=== PATIENT | female | born 1975 | race Two or more races ===

== ENCOUNTER 2017-03-27 05:24 | Emergency (ER) | payer MEDICAID ==
[~2017-03-27] VITALS: Ht 167.6 cm; Wt 99.8 kg
[2017-03-27 09:58] VITALS: BP 132/99
== END 2017-03-27 10:12 | disposition home or self-care (01) ==
LOC: ER 05:27
DX: N64.52 Nipple discharge (principal); J01.10 Acute frontal sinusitis, unspecified
CPT/HCPCS: 76642; 81025

== ENCOUNTER 2017-07-15 11:27 | Emergency (ER) | payer MEDICAID ==
[~2017-07-15] VITALS: Ht 167.6 cm; Wt 99.8 kg
[2017-07-15] MEDS ORDERED: IOHEXOL 300 MG/ML 100ML BOTTLE IJ ONE (12:00)
[2017-07-15 12:19] LABS: Basophils # (auto) 0 uL; Basophils % (auto) 0.1 % (0.0-2.0); Eosinophils # (auto) 0 uL; Hematocrit 46.8 % (36.0-46.0); Lymphocytes # (auto) 0.4 uL; Lymphocytes % (auto) 5.8 % (10.0-50.0); Mean Corpuscular Hemoglobin 29.8 pg (28.0-32.0); Mean Corpuscular Hgb Conc. 34.2 g/dL (32.0-36.0); Mean Corpuscular Volume 87.2 fL (80.0-100.0); Monocytes # (auto) 0.5 uL; Neutrophils # (auto) 5.7 uL; Neutrophils % (auto) 87.1 % (37.0-80.0); Nucleated Red Blood Cells % 0.1 %; Platelet Count (auto) 247 10^3/uL (140-450); Red Blood Cells 5.37 10^6/uL (4.0-5.20); Red Cell Distribution Width 14.9 % (11.8-14.3); White Blood Cell 6.5 10^3/uL (4.4-10.8)
[2017-07-15] MEDS ORDERED: SODIUM CHLORIDE 0.9% 500 ML IV ONE (12:28)
[2017-07-15] MEDS ORDERED: ONDANSETRON HCL 4 MG/2 ML VIAL IV ONE (12:30)
[2017-07-15 12:54] LABS: Alanine Aminotransferase 39 U/L (13-56); Albumin 4.2 g/dL (3.4-5.0); Alkaline Phosphatase 94 U/L (45-117); Anion Gap 9 (5-15); Aspartate Aminotransferase 43 U/L (15-37); BUN/Creatinine Ratio 7.1; Bilirubin, Total 0.6 mg/dL (0.2-1.0); Blood Urea Nitrogen 6 mg/dL (7-18); Carbon Dioxide 24 mmol/L (21-32); Chloride 102 mmol/L (98-107); GFR African American 94 mL/min; GFR Non-African American 78 mL/min; Glucose 92 mg/dL (74-106); Potassium 3.1 mmol/L (3.5-5.1); Sodium 135 mmol/L (136-145)
[2017-07-15 14:09] LABS: Urine Bacteria NONE SEEN /hpf (None Seen); Urine Blood 1+ /uL (Negative); Urine Specific Gravity 1.042 (1.001-1.035); Urine WBC <1 /hpf (0 - 5)
[2017-07-15] MEDS ORDERED: SODIUM CHLORIDE 0.9% 1,000 ML IV ONE ×2 (14:20)
[2017-07-15] MEDS ORDERED: ACETAMINOPHEN 325 MG TAB PO ONE (14:30)
[2017-07-15] MEDS ORDERED: metroNIDAZOLE 500MG/100ML 100 ML IV ONE (14:30)
[2017-07-15] MEDS ORDERED: POTASSIUM CHL 10% (20 MEQ/15ML) 15ml ORAL SOLN PO ONE (15:00)
[2017-07-15 16:05] VITALS: BP 152/79
== END 2017-07-15 16:13 | disposition home or self-care (01) ==
LOC: EDBD 11:27 → ER 11:27
DX: K52.9 Noninfective gastroenteritis and colitis, unspecified (principal); E87.6 Hypokalemia; Z90.49 Acquired absence of other specified parts of digestive tract
CPT/HCPCS: 36415; 74177; 80053; 81001; 84484; 85025; 96361; 96365; 99285; J2405; J3490; J7030; J7040; Q9967

== ENCOUNTER 2024-01-14 18:16 | Emergency (ER) | payer MEDICAID ==
[~2024-01-14] VITALS: Ht 167.6 cm; Wt 77.2 kg
[2024-01-14 18:26] VITALS: BP 143/77; PULSE 84; RESP 18; O2SAT 95
[2024-01-14] MEDS ORDERED: DexAMETHasone 4 MG TAB PO ONE (19:00)
[2024-01-14] MEDS ORDERED: DIPH25CA66 PO (20:29)
[2024-01-14] MEDS ORDERED: PRED20TA2 PO (20:29)
[2024-01-14] MEDS ORDERED: FAMO20TA10 PO (20:29)
== END 2024-01-15 00:09 | disposition left against medical advice (07) ==
LOC: ER 18:16
DX: T78.3XXA Angioneurotic edema, initial encounter (principal); Z90.49 Acquired absence of other specified parts of digestive tract
CPT/HCPCS: 99283; J8540; 99291

== ENCOUNTER 2024-06-05 08:04 | Inpatient (IN) | payer MEDICAID ==
[~2024-06-05] VITALS: Ht 167.6 cm; Wt 137.4 kg
[~2024-06-05 08:04] MED LIST: DIPH25CA66 PO; FAMO20TA10 PO; PRED20TA2 PO
[2024-06-05 08:49] LABS: Urine Bacteria None Seen /hpf (None Seen)
[2024-06-05 08:59] LABS: Urine Blood TRACE /uL (Negative); Urine Clarity Clear (Clear); Urine Color Light-Yellow (Yellow); Urine Protein, UAD Negative (Negative); Urine Specific Gravity 1.011 (1.001-1.035); Urine Squamous Epithelial Cell FEW /hpf (<5); Urine Urobilinogen Normal (Negative); Urine WBC 1 /HPF (0-5); Urine pH 6.5 (5.0-9.0)
--- NOTE | 2024-06-05 09:19 | ED.PDOC ---
HPI (NEURO) HPI Comments 48 year old female presents to the ED with chief complaint of left arm weakness/numbness. Patient relays that she woke up this morning with left arm numbness and weakness, not being able to lift it up very high along with associated headache, and eye pain. Patient relays that she is now unable to walk well on her own with her legs being very weak. Patient denies any chest pain, SOB, dizziness, blurred vision, fever, or chills. Chief Complaint: General Weakness Time Seen by MD: 09:11 Primary Care Provider: KIRILL Reviewed Notes: Nurses Notes, Medications, Allergies Information Source: Patient Mode of Arrival: Ambulatory Severity: Moderate Dizziness/Weakness Severity: Unable to do activities Headache Severity: Moderate Timing: Hours Duration: Since onset Prehospital treatment: None Headache Quality: Aching Headache Location: Generalized Weakness Location: (L) Arm, (R) Leg, (L) Leg Numbness Location: (L) Arm Onset: At rest Circumstances: Spontaneous Symptoms: Weakness History of: None Modifying factors: Nothing Past Medical History PAST MEDICAL HISTORY: HTN Surgical History: Cholecystectomy 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: No Pertinent MANAGER 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 Family History Family History: Unknown Social History Smoker: Non-Smoker Alcohol: Denies ETOH Use Drugs: Denies Drug Use Lives In: Home Constitutional: denies: chills, diaphoresis, fatigue, fever, malaise, sweats, weakness, others EENTM: reports: eye pain; denies: blurred vision, double vision, ear bleeding, ear discharge, ear drainage, ear pain, ear ringing, eye redness, hearing loss, mouth pain, mouth swelling, nasal discharge, nose bleeding, nose congestion, nose pain, photophobia, tearing, throat pain, throat swelling, voice changes, others Respiratory: denies: cough, hemoptysis, orthopnea, SOB at rest, shortness of breath, SOB with excertion, stridor, wheezing, others Cardiovascular: denies: chest pain, dizzy spells, diaphoresis, Dyspnea on exertion, edema, irregular heart beat, left arm pain, lightheadedness, pa lpitations, PND, syncope, others Gastrointestinal: denies: abdomen distended, abdominal pain, blood streaked bowels, constipated, diarrhea, dysphagia, difficulty swallowing, hematemesis, melena, nausea, poor appetite, poor fluid intake, rectal bleeding, rectal pain, vomiting, others Genitourinary: denies: abnormal vagina bleeding, burning, dyspareunia, dysuria, flank pain, frequency, hematuria, incontinence, pain, , vagina discharge, urgency, others Neurological: reports: headache, others (Left arm weakness/numbness, Difficulty walking); denies: dizziness, fainting, left sided numbness, left sided weakness, numbness, paresthesia, pre-existing deficit, right sided numbness, right sided weakness, seizure, speech problems, tingling, tremors, weakness Musculoskeletal: denies: back pain, gout, joint pain, joint swelling, muscle pain, muscle stiffness, neck pain, others Integumetry: denies: bruises, change in color, change in hair/nails, dryness, laceration, lesions, lumps, rash, wounds, others Allergic/Immunocompromised: denies: Difficulty Healing, Frequent Infections, Hives, Itching, others Hematologic/Lymphatic: denies: anemia, blood clots, easy bleeding, easy bruising, swollen glands, others Endocrine: denies: excessive hunger, excessive sweating, excessive thirst, excessive urination, flushing, intolerance to cold, intolerance to heat, unexplained weight gain, unexplained weight loss, others Psychiatric: denies: anxiety, bipolar disorder, depression, hopeless, panic disorder, schizophrenia, sleepless, suicidal, others All Other Systems: Reviewed and Negative Physical Exam General Appearance: No Apparent Distress, Normal HEENT: Normal ENT Inspection, PERRL/EOMI Neck: Full Range of Motion, Non-Tender, Normal, Normal Inspection Respiratory: Chest Non-Tender, Lungs Clear, No Accessory Muscle Use, No Respiratory Distress, Normal Breath Sounds Cardiovascular: No Edema, No JVD, No Murmur, No Gallop, Normal Peripheral Pulses, Regular Rate/Rhythm Breast Exam: Deferred Gastrointestinal: No Organomegaly, Non Tender, No Pulsatile Mass, Normal Bowel Sounds, Soft Genitalia: Deferred Pelvic: Deferred Rectal: Deferred Extremities: No calf tenderness, Normal capillary refill, Normal inspection, Normal range of motion, Non-tender, No pedal edema Musculoskeletal : Apperance: Normal 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 Was a procedure done?: No Differential Diagnosis (SZ) Seizure: CVA/TIA, Idiopathic CVA: CVA, Hypoglycemia, Hypoxemia General Weakness: Electrolyte imbalance, Encephalopathy, Hypotension, Myocardial infarction, Repiratory failure, TIA Headache: N/A X-Ray, Labs, Meds, VS Vital Signs Date Time Temp Pulse Resp B/P (MAP) Pulse Ox O2 Delivery O2 Flow Rate FiO2 06/05/24 10:15 97.9 78 22 183/92 (122) 96 97.9 06/05/24 10:07 Room Air* 0 21 06/05/24 08:18 84 06/05/24 08:07 98.0 86 20 153/78 (103) 95 171/84 (113) Lab Test 06/05/24 10:12 06/05/24 09:12 06/05/24 08:13 06/05/24 08:12 Range/Units Troponin I High Sensitivity 5 5 </=34 ng/L White Blood Count 10.1 4.4-10.8 10^3/uL Red Blood Count 5.08 4.0-5.20 10^6/uL Hemoglobin 15.5 12.2-16.2 g/dL Hematocrit 45.3 36.0-46.0 % Mean Corpuscular Volume 89.3 80.0-100.0 fL Mean Corpuscular Hemoglobin 30.5 28.0-32.0 pg Mean Corpuscular Hemoglobin Concent 34.2 32.0-36.0 g/dL Red Cell Distribution Width 14.3 11.8-14.3 % Platelet Count 377 140-450 10^3/uL Mean Platelet Volume 6.5 L 6.9-10.8 fL Neutrophils (%) (Auto) 69.5 37.0-80.0 % Lymphocytes (%) (Auto) 19.0 10.0-50.0 % Monocytes (%) (Auto) 6.6 0.0-12.0 % Eosinophils (%) (Auto) 4.4 0.0-7.0 % Basophils (%) (Auto) 0.5 0.0-2.0 % Neutrophils # (Auto) 7.0 1.6-8.6 10 ^3/uL Lymphocytes # (Auto) 1.9 0.4-5.4 10 ^3/uL Monocytes # (Auto) 0.7 0-1.3 10 ^3/uL Eosinophils # (Auto) 0.4 0-0.8 10 ^3/uL Basophils # (Auto) 0 0-0.2 10 ^3/uL Nucleated Red Blood Cells 0.0 % Sodium Level 138 136-145 mmol/L Potassium Level 4.5 3.5-5.1 mmol/L Chloride Level 104 98-107 mmol/L Carbon Dioxide Level 25 20-31 mmol/L Anion Gap 9 5-15 Blood Urea Nitrogen 9 9-23 mg/dL Creatinine 0.68 0.550-1.02 mg/dL Glomerular Filtration Rate Calc 107 >90 mL/min BUN/Creatinine Ratio 13.2 10.0-20.0 Serum Glucose 140 H 74-106 mg/dL Calcium Level 10.3 8.7-10.4 mg/dL Urine Color Light-yellow Yellow Urine Clarity Clear Clear Urine pH 6.5 5.0-9.0 Urine Specific [place] 1.011 1.001-1.035 Urine Protein Negative Negative Urine Ketones Negative Negative Urine Blood Trace H Negative /uL Urine Nitrite Negative Negative Urine Bilirubin Negative Negative Urine Urobilinogen Normal Negative mg/dL Urine Leukocyte Esterase Negative Negative /uL Urine RBC 1 0 - 4 /hpf Urine Microscopic WBC 1 0-5 /HPF Urine Squamous Epithelial Cells Few <5 /hpf Urine Bacteria None seen None Seen /hpf Urine Glucose Normal Normal mg/dL POC Glucose 147 H 70-106 mg/dl CT Head: FINDINGS: There is no evidence of acute intracranial hemorrhage, mass, mass effect midline shift. There is no hydrocephalus or extra-axial fluid collection. Le-white matter differentiation is maintained. The visualized paranasal sinuses and mastoid air cells are clear. The calvarium is intact. IMPRESSION: 1. No acute intracranial process. Images Reviewed?: Images reviewed and evaluated by me Time of 1ST Reevaluation: 10:11 Reevaluation 1ST: Unchanged Patient Education/Counseling: Diagnosis, Treatment Family Education/Counseling: Diagnosis, Treatment Additional Information I reviewed the following notes from patient's past medical encounters: 01/14/24 for allergic reaction The following tests were ordered, and results were reviewed by me: CBC, BMP, UA, Troponin, EKG, Chest XR, Head CT I reviewed and agreed with the following test results read by other providers: None Additional Information was gathered from interviewing the following independent historians: Family I discussed treatment and results with medical personnel and family Departure 1 Departure Time of Disposition: 11:50 (Patient presents with left-sided arm weakness generalized weakness for 1 day. Patient is out of window for emergent urologic intervention. Workup so far is benign. We will admit patient for further workup.) Impression: Primary Impression: Left arm weakness Additional Impression: Generalized weakness Disposition: ADMITTED INPATIENT Admit to: Med Surg Condition: Serious Critical Care Note Critical Care Time?: Yes Critical care comment: Left arm weakness concerning for CVA Authorized and Performed by: Yordan Hassan MD Total critical care time: Approximately 36 minutes Due to a high probability of clinically significant, life threatening deterioration, the patient required my highest level of preparedness to intervene emergently and I personally spent this critical care time directly and personally managing the patient. This critical care time included obtaining a history; examining the patient; pulse oximetry; ordering and review of studies; arranging urgent treatment with development of a management plan; evaluation of patient's response to treatment; frequent reassessment; and, discussions with other providers. This critical care time was performed to assess and manage the high probability of imminent, life-threatening deterioration that could result in multi-organ failure. It was exclusive of separately billable procedures and treating other patients and teaching time. Please see my other sections and the rest of the note for further information on patient assessment and treatment. Stability Stability form required: No Heart Score Heart Score: Heart Score Response (Comments) Value History N/A 0 EKG N/A 0 Age N/A 0 Risk Factors N/A 0 Troponin N/A 0 Total 0 I personally scribed for YORDAN HASSAN MD ([email or web address]) on 06/05/24 at 09:19. Electronically submitted by Juve Agosto ([email or web address]). I personally scribed for YORDAN HASSAN MD ([email or web address]) on 06/05/24 at 10:39. Electronically submitted by Juve Agosto ([email or web address]). YORDAN HASSAN MD Jun 05, 2024 09:19
--- NOTE | 2024-06-05 09:31 | DVH ---
CHEST RADIOGRAPH Indication: left arm weakness Technique: Single frontal view of the chest was obtained Comparison: None FINDINGS: Lines and Tubes: None Lungs: No focal consolidation. Pleura: No effusion. No pneumothorax. Cardiomediastinal contours: Unremarkable Bones: No acute osseous abnormality. IMPRESSION: No acute cardiopulmonary disease.
--- NOTE | 2024-06-05 09:35 | DVH ---
EXAM: CT HEAD WITHOUT CONTRAST HISTORY: left arm weakness COMPARISON: None TECHNIQUE: Axial images of the head were obtained and reformatted in coronal and sagittal planes. All CT scans at this medical facility are performed using dose modulation techniques as appropriate t o a performed exam including the following: Automated exposure control was utilized; adjustment of th e MA and/or KV according to patient size; and use of iterative reconstruction technique. CT Dose: CTDI volume is 65 mGy. Dose-length product is 1286 mGy*cm FINDINGS: There is no evidence of acute intracranial hemorrhage, mass, mass effect midline shift. There is no h ydrocephalus or extra-axial fluid collection. Le-white matter differentiation is maintained. The visualized paranasal sinuses and mastoid air cells are clear. The calvarium is intact. IMPRESSION: 1. No acute intracranial process. HS:Y
[2024-06-05 09:48] LABS: Basophils # (auto) 0 10 ^3/uL (0-0.2); Basophils % (auto) 0.5 % (0.0-2.0); Eosinophils # (auto) 0.4 10 ^3/uL (0-0.8); Eosinophils % (auto) 4.4 % (0.0-7.0); Hematocrit 45.3 % (36.0-46.0); Hemoglobin 15.5 g/dL (12.2-16.2); Lymphocytes # (auto) 1.9 10 ^3/uL (0.4-5.4); Mean Corpuscular Hemoglobin 30.5 pg (28.0-32.0); Mean Corpuscular Hgb Conc. 34.2 g/dL (32.0-36.0); Mean Corpuscular Volume 89.3 fL (80.0-100.0); Monocytes # (auto) 0.7 10 ^3/uL (0-1.3); Monocytes % (auto) 6.6 % (0.0-12.0); Neutrophils % (auto) 69.5 % (37.0-80.0); Platelet Count (auto) 377 10^3/uL (140-450); Red Blood Cells 5.08 10^6/uL (4.0-5.20); Red Cell Distribution Width 14.3 % (11.8-14.3); White Blood Cell 10.1 10^3/uL (4.4-10.8)
[2024-06-05 11:27] LABS: Chloride 104 mmol/L (98-107); Potassium 4.5 mmol/L (3.5-5.1); Sodium 138 mmol/L (136-145)
[2024-06-05 11:28] LABS: Anion Gap 9 (5-15); Calcium 10.3 mg/dL (8.7-10.4); Carbon Dioxide 25 mmol/L (20-31)
[2024-06-05 11:33] LABS: BUN/Creatinine Ratio 13.2 (10.0-20.0)
[2024-06-05 11:34] LABS: Blood Urea Nitrogen 9 mg/dL (9-23); Glucose 140 mg/dL (74-106)
[2024-06-05 12:50] VITALS: BP 146/88; PULSE 77; RESP 16; TEMP 97.6; O2SAT 96
[2024-06-05] MEDS ORDERED: LOSA-535 PO (13:35)
--- NOTE | 2024-06-05 13:43 | DVHHP2 ---
History of Present Illness Reason for Visit: Generalized weakness History of Present Illness Jeannine Calderon is a 48-year-old female with past medical history of morbid obesity, and hypertension, who came into the hospital due to generalized weakness. Patient states that she was fine yesterday, she woke up today and could not lift her left arm, and the rest of her body was weak and felt paralized. She state that normally she can ambulate to the bathroom, but she was unable to move her legs or body when she first woke up. She had generalized body aches and weakness. Her weakness has improved some however, she still has difficulty moving her left arm/shoulder. Cardiovascular: HTN Past Surgical History: Cholecystectomy, (x 3), Other (Brain tumor removal) Smoke: No ALCOHOL: none Drugs: None Lives: with Family (Lives with her 2 young children) Domestic Violence: Neg Review of Systems Constitutional: No: Fever, Chills, Sweats, Weakness, Malaise, Other Eyes: No: Pain, Vision change, Conjunctivae inflammation, Eyelid inflammation, Other, Redness ENT: No: Ear pain, Ear discharge, Nose pain, Nose discharge, Nose congestion, Mouth pain, Mouth swelling, Throat pain, Throat swelling, Other Respiratory: No: Cough, Dry, Shortness of breath, SOB with excertion, Wheezing, Hemoptysis, Pleuritic Pain, Sputum, Wheezing, Other Cardiovascular: No: Chest Pain, Palpitations, Orthopnea, Paroxysmal Noc. Dyspnea, Edema, Lt Headedness, Other Gastrointestinal: No: Nausea, Vomiting, Abdominal Pain, Diarrhea, Constipation, Melena, Hematochezia, Other Genitourinary: No Dysuria, No Frequency, No Incontinence, No Hematuria, No Retention, No Other Musculoskeletal: No: other, neck pain, shoulder pain, arm pain, back pain, hand pain, leg pain, foot pain Skin: No: Rash, Lesions, Jaundice, Bruising, Other Neurological: Weakness, Numbness; No: Incoordination, Change in speech, Confusion, Seizures, Other Allergies: Coded Allergies: NO KNOWN ALLERGIES (Unverified , 07/15/17) Medications Current Medications Medications Dose Ordered Sig/Barry Route Start Time Stop Time Status Last Admin Dose Admin Sodium Chloride 10 ml Q8HR IV 06/05/24 14:00 UNV Acetaminophen/ Hydrocodone Bitart 1 tab Q4HP PRN PO 06/05/24 13:45 UNV Ondansetron HCl 4 mg Q4HP PRN IV 06/05/24 13:45 UNV Docusate Sodium 100 mg BIDPRN PRN PO 06/05/24 13:45 UNV Acetaminophen 650 mg Q6HP PRN PO 06/05/24 13:45 UNV Nitroglycerin 0.4 mg Q5MINP PRN SL 06/05/24 13:45 UNV Morphine Sulfate 2 mg Q30M PRN IV 06/05/24 13:45 UNV Exam Vital Signs Vital Signs Date Time Temp Pulse Resp B/P (MAP) Pulse Ox O2 Delivery O2 Flow Rate FiO2 06/05/24 12:50 97.6 77 16 146/88 (107) 96 97.6 06/05/24 10:07 Room Air* 0 21 General Appearance: Alert, Oriented X3, Cooperative, mild distress HEENT: Atraumatic, PERRLA Respiratory: Clear to auscultation, Normal air movement Cardiovascular: Regular rate, Normal S1, Normal S2 Abdominal: Normal bowel sounds, Soft, No tenderness, No hepatospenomegaly Extremities: No clubbing, No cyanosis, Normal pulses Skin: No rashes, No breakdown, No significant lesion Neuro: Normal speech, Other (weakness in bilateral lower extremities) Psych/Mental Status: Mental status NL, Mood NL Labs/Xrays Labs Test 06/05/24 10:12 06/05/24 09:12 06/05/24 08:13 06/05/24 08:12 Range/Units Troponin I High Sensitivity 5 </=34 ng/L White Blood Count 10.1 4.4-10.8 10^3/uL Red Blood Count 5.08 4.0-5.20 10^6/uL Hemoglobin 15.5 12.2-16.2 g/dL Hematocrit 45.3 36.0-46.0 % Mean Corpuscular Volume 89.3 80.0-100.0 fL Mean Corpuscular Hemoglobin 30.5 28.0-32.0 pg Mean Corpuscular Hemoglobin Concent 34.2 32.0-36.0 g/dL Red Cell Distribution Width 14.3 11.8-14.3 % Platelet Count 377 140-450 10^3/uL Mean Platelet Volume 6.5 L 6.9-10.8 fL Neutrophils (%) (Auto) 69.5 37.0-80.0 % Lymphocytes (%) (Auto) 19.0 10.0-50.0 % Monocytes (%) (Auto) 6.6 0.0-12.0 % Eosinophils (%) (Auto) 4.4 0.0-7.0 % Basophils (%) (Auto) 0.5 0.0-2.0 % Neutrophils # (Auto) 7.0 1.6-8.6 10 ^3/uL Lymphocytes # (Auto) 1.9 0.4-5.4 10 ^3/uL Monocytes # (Auto) 0.7 0-1.3 10 ^3/uL Eosinophils # (Auto) 0.4 0-0.8 10 ^3/uL Basophils # (Auto) 0 0-0.2 10 ^3/uL Nucleated Red Blood Cells 0.0 % Sodium Level 138 136-145 mmol/L Potassium Level 4.5 3.5-5.1 mmol/L Chloride Level 104 98-107 mmol/L Carbon Dioxide Level 25 20-31 mmol/L Anion Gap 9 5-15 Blood Urea Nitrogen 9 9-23 mg/dL Creatinine 0.68 0.550-1.02 mg/dL Glomerular Filtration Rate Calc 107 >90 mL/min BUN/Creatinine Ratio 13.2 10.0-20.0 Serum Glucose 140 H 74-106 mg/dL Calcium Level 10.3 8.7-10.4 mg/dL Urine Color Light-yellow Yellow Urine Clarity Clear Clear Urine pH 6.5 5.0-9.0 Urine Specific [place] 1.011 1.001-1.035 Urine Protein Negative Negative Urine Ketones Negative Negative Urine Blood Trace H Negative /uL Urine Nitrite Negative Negative Urine Bilirubin Negative Negative Urine Urobilinogen Normal Negative mg/dL Urine Leukocyte Esterase Negative Negative /uL Urine RBC 1 0 - 4 /hpf Urine Microscopic WBC 1 0-5 /HPF Urine Squamous Epithelial Cells Few <5 /hpf Urine Bacteria None seen None Seen /hpf Urine Glucose Normal Normal mg/dL POC Glucose 147 H 70-106 mg/dl EXAM: CT HEAD WITHOUT CONTRAST FINDINGS: There is no evidence of acute intracranial hemorrhage, mass, mass effect midline shift. There is no hydrocephalus or extra-axial fluid collection. Le-white matter differentiation is maintained. The visualized paranasal sinuses and mastoid air cells are clear. The calvarium is intact. IMPRESSION: 1. No acute intracranial process. CHEST RADIOGRAPH FINDINGS: Lines and Tubes: None Lungs: No focal consolidation. Pleura: No effusion. No pneumothorax. Cardiomediastinal contours: Unremarkable Bones: No acute osseous abnormality. IMPRESSION: No acute cardiopulmonary disease. 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 Procedure Category Date Status Time Admit ADMIT 06/05/24 Transmitted 13:32 Code Status CODE 06/05/24 Transmitted 13:32 Sodium Chloride Lock PHA 06/05/24 Logged (Saline Lock Ns) 14:00 Hydrocodone-Acet PHA 06/05/24 Logged 5/325mg Tab ([place] 13:45 Ondansetron Hcl PHA 06/05/24 Transmitted (Zofran) 13:45 Docusate Sodium PHA 06/05/24 Transmitted Capsule (Colace 13:45 Fall Risk Precautions CASEY 06/05/[address] 13:32 Complete Blood Count LAB 06/06/24 Verified 04:00 Comprehensive LAB 06/06/24 Verified Metabolic Panel 04:00 Cardiac DIET 06/05/24 Transmitted Diet-2gna,Lofat,Lochol Dinner Pt Request For Service PT 06/05/24 Logged 13:32 Condition: Serious CASEY 06/05/24 In Process 13:32 Acetaminophen Tablet PHA 06/05/24 Transmitted (Tylenol Tablet) 13:45 Nitroglycerin PHA 06/05/24 Transmitted Sublingual (Ntrostat 13:45 Morphine Sulfate PHA 06/05/24 Transmitted Injection 13:45 Stat Ekg For Chest CASEY 06/05/24 In Process Pain 13:32 Notify Md Of Changes CASEY 06/05/24 In Process From Base 13:32 Rubber Cutter For CASEY 06/05/24 In Process 24 Hours 13:32 Emergency Dysrhythmia CASEY 06/05/24 In Process Protocol 13:32 Rhythm Strips Once CASEY 06/05/24 In Process Every Shift 13:32 Oxygen By Nasal RT 06/05/24 Transmitted Cannula 13:32 (Nf) Losartan PHA 06/06/24 Verified Potassium 10:00 Date of Service: Jun 05, 2024 Billing Provider: CHRYSTAL HANSEN Common Visit Codes: [id number] INP/OBS CARE (MOD) CHRYSTAL HANSEN Jun 05, 2024 13:43
[2024-06-05] MEDS ORDERED: DOCUSATE SOD 100 MG CAP PO PRN (13:45)
[2024-06-05] MEDS ORDERED: ACETAMINOPHEN 325 MG TAB PO PRN (13:45)
[2024-06-05] MEDS ORDERED: MORPHINE SULFATE INJ 2 MG/ml SYRG IV PRN (13:45)
[2024-06-05] MEDS ORDERED: NITROGLYCERIN 0.4 MG SL TAB SL PRN (13:45)
[2024-06-05] MEDS ORDERED: HYDROcodone-ACET 5/325MG TAB PO PRN (13:45)
[2024-06-05] MEDS ORDERED: ONDANSETRON HCL 4 MG/2 ML VIAL IV PRN (13:45)
[2024-06-05] MEDS ORDERED: SODIUM CHLOR 0.9% PF (SALINE LOCK) 10ML VIAL/SYR IV SCH (14:00)
--- NOTE | 2024-06-05 15:21 | ECG ---
[facility] Test Date: 2024-06-05 Test Time: 08:18:19 Pat Name: YARIEL CARRANZA Department: ED Room: [address] [place] [address] A Gender: F Log Clerk: SRIRAM : 1975 Requested By: YORDAN HERNANDEZ Order Number: [id number] Reading MD: Hema Jung Measurements Intervals [place] Rate: 84 P: 39 [place]: 159 QRS: -10 QRSD: 95 T: 7 QT: 367 QTc: 434 Interpretive Statements Sinus rhythm Low voltage, precordial leads Electronically Signed On 06-07-2024 11:53:45 PST by Hema Jung Please click the below link to view image of tracing.
[2024-06-06] MEDS ORDERED: LOSARTAN POTASSIUM 50 MG TAB PO SCH (10:00)
== END 2024-06-05 16:24 | disposition left against medical advice (07) | DRG 199 ==
LOC: ER 08:04 → OVERFLOW 13:32
PROVIDERS: ADMIT Nurse Practitioner Family; ATTEND Nurse Practitioner Family
DX: I16.0 Hypertensive urgency (principal); E66.01 Morbid (severe) obesity due to excess calories; I10 Essential (primary) hypertension; Z53.29 Procedure and treatment not carried out because of patient's decision for other reasons; R73.9 Hyperglycemia, unspecified; Z90.49 Acquired absence of other specified parts of digestive tract; Z68.42 Body mass index [BMI] 45.0-49.9, adult
CPT/HCPCS: 36415; 70450; 71045; 80048; 81001; 82962; 84484; 85025; 93005; 99291; G0378